=== PATIENT | male | born 1960 | race Caucasian/White ===

== ENCOUNTER 2016-12-08 18:05 | Emergency (ER) | payer OTHER ==
[2016-12-08] MEDS ORDERED: PREDNISONE 20 MG TAB PO ONE (18:31)
[2016-12-08] MEDS ORDERED: DIPHENHYDRAMINE HCL 25 MG CAPSULE PO ONE (18:32)
--- NOTE | 2016-12-08 18:38 | Emergency Department Record ---
History of Present Illness - General Chief complaint: Allergic Reaction Stated complaint: REACTION TO MED, HIVES Time Seen by Provider: 12/08/16 18:31 Source: Patient Mode of Arrival: Ambulatory Limitations: No limitations - History of Present Illness Initial Comments: 56 yo male presents with hives for one day. The hives are diffuse at this point. No shortness of breath. NO facial, tongue, or lip swelling. He has been on Amoxicillin for one week. He has had hives before on Amoxicillin. NO shortness of breath. MD Complaint: Hives Onset/Timin -: Days(s) Exposure: Medication Severity: Mild Treatment Prior to Arrival: Benadryl - Related Data Home Medications Medication Instructions Recorded Confirmed Last Taken Aspirin [Aspirin EC] 81 mg PO DAILY 11/20/15 11/20/15 1 Day Ago Loratadine [Claritin] 10 mg PO DAILY 11/20/15 11/20/15 1 Day Ago Montelukast Sodium [Singulair] 10 mg PO DAILY 11/20/15 11/20/15 1 Day Ago Omeprazole [Prilosec] 40 mg PO DAILY 11/20/15 11/20/15 1 Day Ago Amlodipine Bes/Olmesartan Med 1 each PO DAILY 12/08/16 12/08/16 12/08/16 [Art 10-20 mg Tablet] Previous Rx's Medication Instructions Recorded Prednisone [Prednisone 20Mg] 20 mg PO BID #10 tab 12/08/16 Allergies Allergy/AdvReac Type Severity Reaction Status Date / Time amoxicillin AdvReac RASH Verified 12/08/16 18:27 Travel Screening - Travel/Exposure Within Last 30 Days Have you traveled within the last 30 days?: No - Travel/Exposure Within Last Year Have you traveled outside the [place] in the last year?: No - Additonal Travel Details Have you been exposed to anyone with a communicable illness?: No - Travel Symptoms Symptom Screening: None Review of Systems Constitutional: Denies: Chills, Fever, Malaise, Night sweats, Weakness Eyes: Denies: Eye discharge, Eye pain, Photophobia, Vision change ENT: Denies: Congestion, Throat pain Respiratory: Denies: Cough, Dyspnea, Hemoptysis, Stridor, Wheezes Cardiovascular: Denies: Chest pain, Palpitations, Syncope Endocrine: Denies: Fatigue Gastrointestinal: Denies: Abdominal pain, Diarrhea, Nausea, Vomiting Genitourinary: Denies: Dysuria, Frequency, Hematuria Musculoskeletal: Denies: Arthralgia, Back pain, Myalgia, Neck pain Skin: Reports: Change in color, Pruritus Neurological: Denies: Headache Psychiatric: Denies: Anxiety Hematological/Lymphatic: Denies: Anemia, Blood Clots, Easy bleeding, Easy bruising Past Medical History - SOCIAL HISTORY Smoking Status: Never smoker Alcohol Use: Occassional Drug Use: None - RESPIRATORY Hx Respiratory Disorders: Yes Comment:: seasonal allergies - CARDIOVASCULAR Hx Cardio Disorders: Yes Hx Hypertension: Yes - NEURO Hx Neuro Disorders: No - GI Hx GI Disorders: No - Hx Genitourinary Disorders: No - ENDOCRINE Hx Endocrine Disorders: No Hx Diabetes: No Hx Thyroid Disease: No - MUSCULOSKELETAL Hx Musculoskeletal Disorders: No - PSYCH Hx Psych Problems: No - HEMATOLOGY/ONCOLOGY Hx Hematology/Oncology Disorders: No Family Medical History Any Significant Family History?: Yes Hx Cancer: Father, Brother/Sister Hx Stroke: Mother Physical Exam - General General Appearance: Alert, Oriented x3, Cooperative, No acute distress Limitations: No limitations - Head Head exam: Atraumatic, Normal inspection - Eye Eye exam: Normal appearance, PERRL - ENT ENT exam: Mucous membranes moist, Normal orophraynx, TM's normal bilaterally, Other (Few scattered hives, no swelling of the tongue or oral structures). negative: Mucous membranes dry Ear exam: Normal external inspection. negative: External canal tenderness Nasal Exam: Normal inspection. negative: Discharge, Sinus tenderness Mouth exam: Normal external inspection, Tongue normal Teeth exam: Normal inspection. negative: Dental caries Throat exam: Normal inspection. negative: Tonsillar erythema, Tonsillomegaly, Tonsillar exudate - Neck Neck exam: Normal inspection, Full ROM. negative: Lymphadenopathy, Tenderness, Thyromegaly - Respiratory Respiratory exam: Normal lung sounds bilaterally. negative: Accessory muscle use, Prolonged expiratory, Respiratory distress, Rhonchi, Stridor, Wheezes - Cardiovascular Cardiovascular Exam: Regular rate, Normal rhythm, Normal heart sounds - GI/Abdominal GI/Abdominal exam: negative: Soft, Distended, Rebound, Rigid, Tenderness - Rectal Rectal exam: Deferred - exam: Deferred - Extremities Extremities exam: Normal inspection, Full ROM, Normal capillary refill. negative: Tenderness - Back Back exam: Denies: Normal inspection (Hives) - Neurological Neurological exam: Alert, Normal gait, Oriented X3, Reflexes normal - Psychiatric Psychiatric exam: Normal affect, Normal mood - Skin Skin exam: Intact, Rash, Urticaria Course Vital Signs 12/08/16 18:09 Temperature 98.1 F Pulse Rate [ 99 H Pulse Ox Probe] Respiratory 16 Rate Blood Pressure 122/84 [Left Arm] Pulse Ox 96 - Reevaluation(s) Reevaluation #1: No No airway involvement Prednisone and Benadryl given 12/08/16 18:35 Disposition Disposition: Discharge Clinical Impression: Hives Disposition: Home, Self-Care Instructions: Urticaria (ED) Additional Instructions: Return if you have swelling, worse hives, short of breath or any concerns. Prescriptions: Prednisone [Prednisone 20Mg] 20 mg PO BID #10 tab Forms: Patient Portal Access Time of Disposition: 18:38
== END 2016-12-08 19:15 | disposition home or self-care (01) ==
LOC: ER 18:05
DX: L50.9 Urticaria, unspecified (principal)
CPT/HCPCS: 99282; J7512

== ENCOUNTER 2016-12-12 22:27 | Observation (INO) | payer OTHER ==
[2016-12-12] MEDS ORDERED: KETOROLAC 30 MG/ML VIAL IM ONE (22:53)
--- NOTE | 2016-12-12 23:04 | Emergency Department Record ---
History of Present Illness - General Chief complaint: Allergic Reaction Stated complaint: ALLERGIC REACTION/HANDS SWELLING Time Seen by Provider: 12/12/16 22:47 Source: Patient Mode of Arrival: Ambulatory Limitations: No limitations, Other - History of Present Illness Initial Comments: The patient is here due to a one day hx of hand and arm swelling and pain. He was seen in the ER 4 days ago for a presumed allergic rxn and was placed on Claritin and Prednisone. Now today he developed pain and swelling to his hands R > L with pain to his shoulders. The onset was initially in the R hand and then it travelled to his L. Yesterday he had some neck pain but that has resolved. The patient denies any fever, chills, MOODY, cough, CP, or SOB. He has no hx of similar issues. Onset/Timin -: Hour(s) Exposure: Unknown Symptoms: Itching, Other Severity: Mild Treatment Prior to Arrival: Laura Previous Allergy History: Other - Related Data Home Medications Medication Instructions Recorded Confirmed Last Taken Aspirin [Aspirin EC] 81 mg PO DAILY 11/20/15 12/12/16 12/12/16 Loratadine [Claritin] 10 mg PO DAILY 11/20/15 12/12/16 12/08/16 Montelukast Sodium [Singulair] 10 mg PO DAILY 11/20/15 12/12/16 12/08/16 Omeprazole [Prilosec] 40 mg PO DAILY 11/20/15 12/12/16 12/12/16 Amlodipine Bes/Olmesartan Med 1 each PO DAILY 12/08/16 12/12/16 12/12/16 [Art 10-20 mg Tablet] Previous Rx's Medication Instructions Recorded Prednisone [Prednisone 20Mg] 20 mg PO BID #10 tab 12/08/16 Allergies Allergy/AdvReac Type Severity Reaction Status Date / Time amoxicillin AdvReac RASH Verified 12/08/16 18:27 Travel Screening - Travel/Exposure Within Last 30 Days Have you traveled within the last 30 days?: No - Travel/Exposure Within Last Year Have you traveled outside the [place] in the last year?: No - Additonal Travel Details Have you been exposed to anyone with a communicable illness?: No - Travel Symptoms Symptom Screening: None Review of Systems Constitutional: Denies: Chills, Fever, Malaise Eyes: Denies: Eye discharge ENT: Denies: Congestion Respiratory: Denies: Cough, Dyspnea Cardiovascular: Denies: Arrhythmia, Chest pain Past Medical History - SOCIAL HISTORY Smoking Status: Never smoker Alcohol Use: Occassional Drug Use: None - RESPIRATORY Hx Respiratory Disorders: Yes Comment:: seasonal allergies - CARDIOVASCULAR Hx Cardio Disorders: Yes Hx Hypertension: Yes - NEURO Hx Neuro Disorders: No - GI Hx GI Disorders: No - Hx Genitourinary Disorders: No - ENDOCRINE Hx Endocrine Disorders: No Hx Diabetes: No Hx Thyroid Disease: No - MUSCULOSKELETAL Hx Musculoskeletal Disorders: No - PSYCH Hx Psych Problems: No - HEMATOLOGY/ONCOLOGY Hx Hematology/Oncology Disorders: No Family Medical History Any Significant Family History?: Yes Hx Cancer: Father, Brother/Sister Hx Stroke: Mother Physical Exam - General General Appearance: Alert, Oriented x3, Cooperative, No acute distress - Head Head exam: Atraumatic, Normocephalic, Normal inspection - Eye Eye exam: Normal appearance, PERRL - Neck Neck exam: Normal inspection, Full ROM. negative: Lymphadenopathy, Meningismus , Tenderness - Respiratory Respiratory exam: Normal lung sounds bilaterally. negative: Respiratory distress - Cardiovascular Cardiovascular Exam: Regular rate, Normal rhythm, Normal heart sounds - GI/Abdominal GI/Abdominal exam: Soft, Normal bowel sounds. negative: Tenderness - Extremities Extremities exam: Joint swelling (There is diffuse hand and wrist edema R mild and L trace.), Tenderness (There is diffuse hand and wrist tenderness R > L.), Other (The arm and hand compartments are soft but tender to the distal anterior forearm area L > R. Radial pulses are strong and equal bilaterally.). negative : Normal inspection (There is mild R hand edema but no erythema, bruising or abrasions.), Full ROM (Decreased hand and wrist flexion and extension R > L due to pain.), Pedal edema - Neurological Neurological exam: Alert, Normal gait, Oriented X3. negative: Abnormal gait, Motor sensory deficit Course Vital Signs 12/12/16 22:35 Temperature 98.1 F Pulse Rate [ 108 H Pulse Ox Probe] Respiratory 20 Rate Blood Pressure 144/90 [Left Arm] Pulse Ox 95 - Reevaluation(s) Reevaluation #1: The patient is resting comfortably but is still having the hand pain and tingling mainly to the L hand fingers. He still demonstrates edema to his hands R > L. I explained to him that his lab tests were mainly all normal and that I think the etiology of the edema could be his BP medicine. 12/13/16 00:26 12/13/16 02:13 Reevaluation #2: The patient is feeling a little better but is still having significant L hand pain. I explained to him that his lab evaluation, EKG and CXR are WNL. Due to the pain being so severe the patient is reluctant to go home. We have tried multiple pain medicines but he is still quite uncomfortable. We will try some ice to the wrist and decide on further treatment after. The patient does state his R hand is feeling better and is pain free at this time. 12/13/16 02:08 12/13/16 02:13 Reevaluation #3: The patient's L hand is feeling a little better at this time but now he has developed some diaphoresis and nausea. I do believe the most likely cause of the sweating and nausea is from the amount of pain medicines he has received. Due to the hands still being a significant problem I do plan on admitting the patient to the hospital on a short stay admission for pain control and IV steroids. 12/13/16 02:56 Medical Decision Making - Data Complexity MDM Data: Labs Ordered and/or Reviewed, X-Ray Ordered and/or Reviewed, EKG Ordered and/or Reviewed - Lab Data Result diagrams: 12/12/16 23:03 12/12/16 23:03 - EKG Data -: EKG Interpreted by Me EKG: No Acute Changes, Normal EKG - Radiology Data Radiology results: Report reviewed (CXR: Neg.) Disposition Disposition: Admit Clinical Impression: Allergic reaction Qualifiers: Encounter type: sequela Qualified Code(s): T78.40XS - Allergy, unspecified, sequela Decision to Admit: Admit from ER Decision to Admit Date: 12/13/16 Decision to Admit Time: 02:58 Accepting Physician: Dasha Time Discussed w/Accepting Physician: :58 Time of Disposition: 02:58
[2016-12-12 23:10] LABS: BASO % 0.2 % (0-6); EOS % 0.8 % (0-6); GRAN % 59.7 % (47-80); HEMATOCRIT 42.2 % (42.0-52.0); LYMPH % 29.3 % (16-45); MEAN CELL VOLUME 91.7 fl (81-97); MEAN CORPUSCULAR HEMOGLOBIN 30.4 pg (27-33); MEAN CORPUSCULAR HGB CONC 33.2 g/dl (32-36); MEAN PLATELET VOLUME 10.4 fl (7.4-10.4); PLATELET COUNT 246 K/uL (130-400); RED CELL DISTRIBUTION WIDTH 13.8 % (11.5-14.5); WHITE BLOOD COUNT W/O DIFF 12.9 K/uL (4.2-12.2)
[2016-12-12 23:24] LABS: ALB/GLOB RATIO 1.6 (1.1-1.8); ALBUMIN 4.2 gm/dL (3.5-5.0); ALKALINE PHOSPHATASE 92 U/L (38-126); ALT/SGPT 52 U/L (21-72); ANION GAP 15.1 (7-16); AST/SGOT 24 U/L (17-59); BILIRUBIN,TOTAL 0.48 mg/dL (0.2-1.3); BLOOD UREA NITROGEN 17 mg/dL (9-20); C-REACTIVE PROTEIN 2.1 mg/dL (0.0-0.9); CARBON DIOXIDE 22.9 mmol/L (22-30); EST GLOMERULAR FILTRATION RATE > 60 ml/min; GLUCOSE,RANDOM 102 mg/dL (70-110); TOTAL PROTEIN 6.8 gm/dL (6.3-8.2)
[2016-12-12 23:41] LABS: ERYTHROCYTE SEDIMENTATION RATE 7 mm/hr (0-20)
[2016-12-12] MEDS ORDERED: MORPHINE SULFATE 5 MG/ML PFS IM ONE (23:53)
[2016-12-12] MEDS ORDERED: ONDANSETRON 4 MG ODT TABLET SL ONE (23:53)
[2016-12-13] MEDS ORDERED: HYDROMORPHONE HCL 1 MG/ML CPJ IM ONE (00:42)
[2016-12-13] MEDS ORDERED: METHYLPREDNISOLONE PF 125MG/VIAL IM ONE (00:43)
[2016-12-13 01:25] LABS: CREATINE PHOSPHOKINASE 50 U/L (55-170)
[2016-12-13] MEDS ORDERED: LORAZEPAM 2 MG/ML VIAL IV ONE (01:25)
[2016-12-13] MEDS ORDERED: HYDROMORPHONE HCL 1 MG/ML CPJ IVP ONE (01:25)
[2016-12-13 01:38] LABS: CKMB 0.5 ug/L (0-6)
[2016-12-13 01:39] LABS: TROPONIN I < 0.012 ng/mL (0.00-0.034)
[2016-12-13] MEDS ORDERED: ONDANSETRON HCL IV 4 MG/2 ML VIAL IVP ONE (02:55)
[2016-12-13] MEDS ORDERED: 0.9 % SODIUM CHLORIDE 1,000 ML BAG IV ONE (02:55)
[2016-12-13] MEDS ORDERED: HYDROMORPHONE HCL 1 MG/ML CPJ IVP PRN (03:36)
[2016-12-13] MEDS ORDERED: METHYLPREDNISOLONE PF 125MG/VIAL IVP SCH (03:36)
[2016-12-13] MEDS ORDERED: 0.9 % SODIUM CHLORIDE 1000ML 1,000 ML IV PRN (03:36)
[2016-12-13] MEDS ORDERED: ACETAMINOPHEN 500 MG TABLET PO PRN (03:36)
[2016-12-13] MEDS ORDERED: ONDANSETRON HCL IV 4 MG/2 ML VIAL IVP PRN (03:36)
--- NOTE | 2016-12-13 07:41 | RADIOLOGY REPORT ---
EXAM: CHEST, TWO VIEWS HISTORY: ALLERGIC REACTION. PAIN AND SWELLING IN HANDS. LEFT SHOULDER STIFFNESS. TECHNIQUE: Upright PA and lateral views of the chest were obtained. Comparison: None. FINDINGS: The heart is not enlarged and the pulmonary vasculature is nondilated. The lung volumes are low. Minor linear scarring versus atelectasis is present in the lateral left lung base. The lungs and pleural spaces are otherwise clear. There are mild degenerative changes scattered within the visualized spine and shoulder girdles. IMPRESSION: MINOR LINEAR SCARRING VERSUS ATELECTASIS IN THE LATERAL LEFT LUNG BASE. JOB NUMBER: [id number] [facility]
--- NOTE | 2016-12-13 09:20 | History & Physical ---
History of Present Illness - Date of Service Date of Service for History & Physical: 12/13/16 - History of Present Illness Admitting Diagnosis: 1. Severe allergic reaction with angioedema. History of Present Illness: 56yo male with CC of bilateral hand pain and swelling. He has a history of HTN, seasonal allergies and urticaria reaction to amoxicillin. Patient presented to the ED yesterday evening with bilateral hand pain. Patient states that at about 2pm yesterday he was typing at work when all of a sudden he had acute onset of sharp bilateral hand pain primarily in the palm and undersides of his fingers. He noted swelling of both hands R>L and numbness and tingling of fingers in the left. 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 After the pain did not subside he decided to come to ED. While in the ED, patient was noted to have moderate swelling of bilateral hands. There were no rashes, redness, cuts, or other open lesions. Patient stated the only thing that had changed in the past week was that he had been put on amoxicillin 2 weeks prior and developed hives. He had then been put on predisone and claritin the past week for the hives which resolved. He had a CXR which was negative. His WBC count was minimally elevated at 12.9 but patient had been on prednisone taper. CRP was 2.1 but otherwise labs were unremarkable. Patient's pain was not improved with IV diluadid. The swelling in his left hand did resolve following soludmedrol 125mg and Icing but the right hand remained mildly swollen. He was admitted for intractable bilateral hand pain. 12/13/16- Patient continues to report pain in the left hand. Pain in the right hand has resolved. He is having tingling sensation in all the fingers of his left hand. The pain is sharp and worst with gripping. The left hand is no longer swollen, but the right continues to be mildly swollen. He is now reporting similar sharp pain in the left deltoid with movement. He denies any previous episodes similar to this. He denies any injury, previous diagnosis of carpal tunnel syndrome, neck pain or injury, rheumatologic conditions or family history of rheum conditions. PCP: Elisa Travel Screening - Travel/Exposure Within Last 30 Days Have you traveled within the last 30 days?: No - Travel/Exposure Within Last Year Have you traveled outside the [place] in the last year?: No - Additonal Travel Details Have you been exposed to anyone with a communicable illness?: No - Travel Symptoms Symptom Screening: None Review of Systems Constitutional: Denies: Chills, Fever, Malaise Eyes: Denies: Eye discharge ENT: Denies: Congestion Respiratory: Denies: Cough, Dyspnea Cardiovascular: Denies: Arrhythmia, Chest pain Gastrointestinal: Reports: Nausea. Denies: Abdominal pain Musculoskeletal: Reports: Joint swelling (right hand), Other (acute left hand and right pain ) Skin: Denies: Change in color, Rash Neurological: Reports: Numbness, Paresthesias, Tingling, Weakness. Denies: Abnormal gait, Confusion, Seizure Psychiatric: Denies: Anxiety, Depression Hematological/Lymphatic: Denies: Anemia, Blood Clots, Easy bleeding, Swollen glands Past Medical History - SOCIAL HISTORY Smoking Status: Never smoker Alcohol Use: Occassional Drug Use: None - RESPIRATORY Hx Respiratory Disorders: Yes Comment:: seasonal allergies - CARDIOVASCULAR Hx Cardio Disorders: Yes Hx Hypertension: Yes - NEURO Hx Neuro Disorders: No - GI Hx GI Disorders: No - Hx Genitourinary Disorders: No - ENDOCRINE Hx Endocrine Disorders: No Hx Diabetes: No Hx Thyroid Disease: No - MUSCULOSKELETAL Hx Musculoskeletal Disorders: No - PSYCH Hx Psych Problems: No - HEMATOLOGY/ONCOLOGY Hx Hematology/Oncology Disorders: No Family Medical History Any Significant Family History?: Yes Hx Cancer: Father, Brother/Sister Hx Stroke: Mother H&P Meds/Allergies - Allergies Allergies: Allergies Allergy/AdvReac Type Severity Reaction Status Date / Time amoxicillin AdvReac RASH Verified 12/08/16 18:27 - Home Medications Home Medications Medication Instructions Recorded Confirmed Last Taken Aspirin [Aspirin EC] 81 mg PO DAILY 11/20/15 12/12/16 12/12/16 Loratadine [Claritin] 10 mg PO DAILY 11/20/15 12/12/16 12/08/16 Montelukast Sodium [Singulair] 10 mg PO DAILY 11/20/15 12/12/16 12/08/16 Omeprazole [Prilosec] 40 mg PO DAILY 11/20/15 12/12/16 12/12/16 Amlodipine Bes/Olmesartan Med 1 each PO DAILY 12/08/16 12/12/16 12/12/16 [Art 10-20 mg Tablet] Previous Rx's Medication Instructions Recorded Prednisone [Prednisone 20Mg] 20 mg PO BID #10 tab 12/08/16 - Active Medications Active Medications: Current Medications Acetaminophen (Tylenol 500mg Tab) 500 mg PO Q6H PRN PRN Reason: PAIN/TEMP Aspirin (Ecotrin (Ec)) 81 mg PO DAILY [facility] Hydromorphone HCl (Dilaudid) 1 mg IVP Q4H PRN PRN Reason: Analgesia Sodium Chloride () 1,000 mls @ 15 mls/hr IV .Q24H PRN PRN Reason: LARGE VOLUME IV Loratadine (Claritin) 10 mg PO DAILY [facility] Methylprednisolone Sodium Succinate (Solu-Medrol) 60 mg IVP DAILY [facility] Montelukast Sodium (Singulair) 10 mg PO DAILY [facility] Ondansetron HCl (Zofran) 4 mg IVP Q4H PRN PRN Reason: NAUSEA Pantoprazole Sodium (Protonix) 80 mg PO DAILYAC [facility] Physical Exam - Vital Signs Vital Signs: Vital Signs - Last 24 Hrs Temp Pulse Resp BP Pulse Ox 12/13/16 07:57 97.6 F 85 16 115/82 95 12/13/16 03:25 98.1 F 77 16 124/87 - General General Appearance: Alert, Oriented x3, Cooperative, No acute distress Limitations: No limitations - Head Head exam: Atraumatic, Normocephalic, Normal inspection - Eye Eye exam: Normal appearance, PERRL - Neck Neck exam: Normal inspection, Full ROM. negative: Lymphadenopathy, Meningismus , Tenderness - Respiratory Respiratory exam: Normal lung sounds bilaterally. negative: Respiratory distress - Cardiovascular Cardiovascular Exam: Regular rate, Normal rhythm, Normal heart sounds Peripheral Pulses: 2+: Radial (R), Radial (L) - GI/Abdominal GI/Abdominal exam: Soft, Normal bowel sounds. negative: Tenderness - Extremities Extremities exam: Full ROM, Joint swelling (There is diffuse hand and wrist edema R mild and L trace.), Tenderness (TTP over left palmar surface ), Other ( The arm and hand compartments are soft but tender to the distal anterior forearm area L > R. Radial pulses are strong and equal bilaterally.). negative : Normal inspection (There is mild R hand edema but no erythema, bruising or abrasions.), Pedal edema - Neurological Neurological exam: Alert, Normal gait, Oriented X3. negative: Abnormal gait, Motor sensory deficit Results - Labs Result Diagrams: 12/12/16 23:03 12/12/16 23:03 - Imaging and Cardiology Chest x-ray Status: Report reviewed (minor atelectasis otherwise unremarkable) VTE H&P Assessment - Risk for VTE Risk for VTE: Yes Risk Level: Low Risk Assessment Date: 12/13/16 Risk Assessment Time: 12:31 VTE Orders Placed or Will Be Placed: Yes Plan - Detailed Diagnosis and Plan (1) Bilateral hand swelling Current Visit: Yes Status: Acute Base Code: M79.89 - OTHER SPECIFIED SOFT TISSUE DISORDERS Comment: 12/13/16- Resolved in the left hand and mild swelling of the right continues. No evidence of decreased perfusion with strong distal pulses and good capillary refill. No evidence of infection. VTE very unlikely considering b /l involvement. -continue icing the affected area -continue methylprednisone 60mg IV daily -hold amlodopine for now, although this is not likely to be inciting factor. -will get ESR with elevated CRP (2) Bilateral hand pain Current Visit: Yes Status: Acute Base Code: M79.641 - PAIN IN RIGHT HAND; M79.642 - PAIN IN LEFT HAND Comment: 12/13/16- Improved in the right hand but continues to be intractable in the left despite IV dilaudid. Pain improves with rest. No evidence of infection. Inflammatory vs neurologic vs? 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 No cervical neck pain or injury. Negative tinel's sign and no history of CPT. -continue methylprednisone (4) DVT prophylaxis Current Visit: Yes Status: Acute Base Code: [id number] - Comment: 12/13/16- Patient is low risk for VTE with age -encourage frequent ambulation (5) Full code status Current Visit: Yes Status: Acute Base Code: Z78.9 - OTHER SPECIFIED HEALTH STATUS Comment: 12/13/16- Patient is full code
[2016-12-13] MEDS ORDERED: FLU VAC QS 2016-17 (INPT, 3YR+) 60MCG/0.5ML IM ONE (10:00)
[2016-12-13] MEDS: ASPIRIN 81 MG TABEC PO SCH (10:25)
[2016-12-13] MEDS: MONTELUKAST SODIUM 10MG TABLET PO SCH (10:26)
[2016-12-13] MEDS: METHYLPREDNISOLONE PF 125MG/VIAL IVP SCH (10:26)
[2016-12-13] MEDS: PANTOPRAZOLE SODIUM 40 MG TABLET PO SCH (10:26)
[2016-12-13] MEDS: LORATADINE 10 MG TABLET PO SCH (10:26)
[2016-12-13] MEDS ORDERED: TRAMADOL HCL 50 MG TABLET PO PRN (10:33)
--- NOTE | 2016-12-13 12:28 | RADIOLOGY REPORT ---
EXAM: LEFT HAND, THREE VIEWS HISTORY: ACUTE PAIN AND SWELLING IN METACARPALS FOR ONE DAY. TECHNIQUE: Three views of the left hand were obtained. Comparison: Same day three views of the right hand. Encounter: Initial. FINDINGS: There is normal bone mineralization. No acute fracture, dislocation , or destructive bone lesion is seen. The articular relations are grossly maintained. No periarticular soft tissue abnormality is identified. No focal soft tissue swelling. IMPRESSION: NO EVIDENCE OF ACUTE BONE OR JOINT ABNORMALITY. JOB NUMBER: [id number] [facility]
--- NOTE | 2016-12-13 12:30 | RADIOLOGY REPORT ---
EXAM: RIGHT HAND, THREE VIEWS HISTORY: ACUTE PAIN AND SWELLING FOR ONE DAY. TECHNIQUE: Three views of the right hand were obtained. Comparison: Same day three views of the left hand. FINDINGS: There is normal bone mineralization. No acute fracture, dislocation , or destructive bone lesion is seen. The articular relations are maintained. No periarticular erosion. There is dorsal soft tissue swelling at the metacarpal level. A small caliber angiocatheter is noted within the lateral aspect of the wrist. IMPRESSION: 1. NO ACUTE BONE OR JOINT ABNORMALITY IDENTIFIED. 2. DORSAL SOFT TISSUE SWELLING AT THE METACARPAL LEVEL. JOB NUMBER: [id number] [facility]
[2016-12-13] MEDS ORDERED: IBUPROFEN 400 MG TABLET PO PRN (12:43)
[2016-12-13] MEDS: HYDROCODONE/APAP 5/325MG TABLET PO PRN ×2 (12:46→18:28)
[2016-12-14] MEDS: PANTOPRAZOLE SODIUM 40 MG TABLET PO SCH (06:20)
[2016-12-14 08:31] LABS: EOS % 0.2 % (0-6); GRAN % 75.8 % (47-80); HEMOGLOBIN 13.9 gm/dl (14.0-18.0); LYMPH % 16.8 % (16-45); MEAN CELL VOLUME 92.7 fl (81-97); MEAN CORPUSCULAR HGB CONC 33.1 g/dl (32-36); MEAN PLATELET VOLUME 10.3 fl (7.4-10.4); MONO % 7.2 % (0-9); PLATELET COUNT 247 K/uL (130-400); RED BLOOD COUNT 4.53 M/uL (4.40-5.70); RED CELL DISTRIBUTION WIDTH 13.7 % (11.5-14.5)
[2016-12-14 08:35] LABS: MEAN CORPUSCULAR HEMOGLOBIN 30.6 pg (27-33)
[2016-12-14 08:48] LABS: ALB/GLOB RATIO 1.5 (1.1-1.8); ALBUMIN 3.9 gm/dL (3.5-5.0); ALKALINE PHOSPHATASE 88 U/L (38-126); ALT/SGPT 48 U/L (21-72); ANION GAP 13.9 (7-16); AST/SGOT 17 U/L (17-59); BILIRUBIN,TOTAL 0.56 mg/dL (0.2-1.3); BLOOD UREA NITROGEN 19 mg/dL (9-20); C-REACTIVE PROTEIN 6.9 mg/dL (0.0-0.9); CARBON DIOXIDE 24.1 mmol/L (22-30); EST GLOMERULAR FILTRATION RATE > 60 ml/min; GLUCOSE,RANDOM 126 mg/dL (70-110); TOTAL PROTEIN 6.5 gm/dL (6.3-8.2)
[2016-12-14] MEDS: ASPIRIN 81 MG TABEC PO SCH (10:01)
[2016-12-14] MEDS: MONTELUKAST SODIUM 10MG TABLET PO SCH (10:01)
[2016-12-14] MEDS: LORATADINE 10 MG TABLET PO SCH (10:01)
[2016-12-14] MEDS: METHYLPREDNISOLONE PF 125MG/VIAL IVP SCH (10:01)
--- NOTE | 2016-12-14 10:58 | Discharge Summary ---
Providers Discharge Summary Date: 12/14/16 Date of admission: 12/13/16 03:16 Expected Date of Discharge: 12/14/16 Attending physician: DIO LOVELL Primary care physician: GREGORIO HEWITT D.O. Physical Exam - Vital Signs Vital Signs: Vital Signs - Last 24 Hrs Temp Pulse Resp BP BP Pulse Ox 12/14/16 09:00 16 12/14/16 05:49 97.5 F L 70 20 106/64 95 12/13/16 22:42 98.2 F 88 20 118/67 96 12/13/16 21:00 84 16 12/13/16 15:00 98.2 F 93 H 16 128/68 96 - General General Appearance: Alert, Oriented x3, Cooperative, No acute distress Limitations: No limitations - Head Head exam: Atraumatic, Normocephalic, Normal inspection - Eye Eye exam: Normal appearance, PERRL - Neck Neck exam: Normal inspection, Full ROM. negative: Lymphadenopathy, Meningismus , Tenderness - Respiratory Respiratory exam: Normal lung sounds bilaterally. negative: Respiratory distress - Cardiovascular Cardiovascular Exam: Regular rate, Normal rhythm, Normal heart sounds Peripheral Pulses: 2+: Radial (R), Radial (L) - GI/Abdominal GI/Abdominal exam: Soft, Normal bowel sounds. negative: Tenderness - Extremities Extremities exam: Full ROM, Other (The arm and hand compartments are soft. Radial pulses are strong and equal bilaterally.). negative: Normal inspection ( There is minimal R hand edema improved from yesterdaybut no erythema, bruising or abrasions.), Joint swelling, Pedal edema, Tenderness - Neurological Neurological exam: Alert, Normal gait, Oriented X3. negative: Abnormal gait, Motor sensory deficit Hospitalization - Hospitalization Admission Diagnosis: 1. Severe allergic reaction with angioedema. - Problem List/Discharge Diagnosis (1) Bilateral hand swelling Current Visit: Yes Status: Acute Base Code: M79.89 - OTHER SPECIFIED SOFT TISSUE DISORDERS Comment: 12/14/16- Resolved in the left hand and improving in the right hand. No evidence of decreased perfusion with strong distal pulses and good capillary refill. No evidence of infection. VTE very unlikely considering b/l involvement. XR of b/l hands were negative for any bony or joint abnormalities. It did show some soft tissue swelling of the dorsal aspect of the right hand. -continue supportive care with rest, icing and tyelnol as needed for mild- moderate pain. Will do a script for [place] 5/325mg PO q6H prn severe pain #8 -Will do prednisone taper as he has been on steroids >1 week now. Will start at 40mg and decrease by 10mg q2 days. -He has follow up with Dr. Hewitt next Saturday the at 9:30am (2) Bilateral hand pain Current Visit: Yes Status: Acute Base Code: M79.641 - PAIN IN RIGHT HAND; M79.642 - PAIN IN LEFT HAND Comment: 12/14/16- Resolved. No pain in the right or left hand. He does report very minimal tingling in the left fingertips also improved from yesterday. Inflammatory vs neurologic vs ? -will have him continue use of tylenol for mild-moderate pain and use of hydrocodone only for severe pain. he is to avoid NSAIDs while on steroids. (3) Hand weakness Current Visit: Yes Status: Acute Base Code: M62.81 - MUSCLE WEAKNESS ( GENERALIZED) Comment: 12/14/16- Resolved. 5/5 remote sensing advisor strength in b/l hands. No cervical neck pain or injury. Negative tinel's sign and no history of CPT. -continue prednisone taper over the next 8 days. -follow up with PCP as scheduled -patient understands he is to return at any time if he has worsening or new symptoms (4) DVT prophylaxis Current Visit: Yes Status: Acute Base Code: [id number] - Comment: 12/14/16- Patient is low risk for VTE with age -encourage frequent ambulation (5) Full code status Current Visit: Yes Status: Acute Base Code: Z78.9 - OTHER SPECIFIED HEALTH STATUS Comment: 12/14/16- Patient is full code - Hospitalization Course Disposition: Home, Self-Care Hospital Course: 56yo male with CC of bilateral hand pain and swelling. He has a history of HTN, seasonal allergies and urticaria reaction to amoxicillin. Patient presented to the ED yesterday evening with bilateral hand pain. Patient states that at about 2pm yesterday he was typing at work when all of a sudden he had acute onset of sharp bilateral hand pain primarily in the palm and undersides of his fingers. He noted swelling of both hands R>L and numbness and tingling of fingers in the left. He also developed remote sensing advisor weakness. After the pain did not subside he decided to come to ED. While in the ED, patient was noted to have moderate swelling of bilateral hands. There were no rashes, redness, cuts, or other open lesions. Patient stated the only thing that had changed in the past week was that he had been put on amoxicillin 2 weeks prior and developed hives. He had then been put on predisone and claritin the past week for the hives which resolved. He had a CXR which was negative. His WBC count was minimally elevated at 12.9 but patient had been on prednisone taper. CRP was 2.1 but otherwise labs were unremarkable. Patient's pain was not improved with IV diluadid. The swelling in his left hand did resolve following soludmedrol 125mg and Icing but the right hand remained mildly swollen. He was admitted for intractable bilateral hand pain. 12/13/16- Patient continues to report pain in the left hand. Pain in the right hand has resolved. He is having tingling sensation in all the fingers of his left hand. The pain is sharp and worst with gripping. The left hand is no longer swollen, but the right continues to be mildly swollen. He is now reporting similar sharp pain in the left deltoid with movement. He denies any previous episodes similar to this. He denies any injury, previous diagnosis of carpal tunnel syndrome, neck pain or injury, rheumatologic conditions or family history of rheum conditions. 12/14/16- Patient reports resolution of pain in both hands. He says the swelling in his right hand continues to improve. The tingling in the left fingertips has improved as well but not completely resolved. He feels the weakness in both hands has resolved and is not having any difficulty gripping. He denies chest pain, weakness, headache, skin changes, or swelling elsewhere. He is feeling ready to go home. Procedures: Imaging and X-Rays 12/13/16 10:41 HAND, LEFT 3 VIEWS [RAD] Stat HAND, RIGHT 3 VIEWS [RAD] Stat Abnormal Labs: Abnormal Lab Results 12/14/16 12/14/16 Range/Units 08:24 08:24 Hgb 13.9 L (14.0-18.0) gm/dl Random Glucose 126 H (70-110) mg/dL C-Reactive Protein 6.9 H (0.0-0.9) mg/dL Condition at Discharge: (2) Stable Discharge Medications - Discharge Medications Prescriptions: Hydrocodone/Acetaminophen [[place] 5mg/325mg] 1 tab PO Q6H PRN #8 tab PRN Reason: Pain - Severe (8-10) Prednisone [Prednisone 10Mg] 10 mg PO ASDIR #20 tab Home Medications: Ambulatory Orders Aspirin [Aspirin EC] 81 mg PO DAILY 11/20/15 [Last Taken 12/12/16] Loratadine [Claritin] 10 mg PO DAILY 11/20/15 [Last Taken 12/08/16] Montelukast Sodium [Singulair] 10 mg PO DAILY 11/20/15 [Last Taken 12/08/16] Omeprazole [Prilosec] 40 mg PO DAILY 11/20/15 [Last Taken 12/12/16] Amlodipine Bes/Olmesartan Med [Art 10-20 mg Tablet] 1 each PO DAILY 12/08/16 [ Last Taken 12/12/16] Hydrocodone/Acetaminophen [[place] 5mg/325mg] 1 tab PO Q6H PRN #8 tab 12/14/16 [ Last Taken Unknown] Prednisone [Prednisone 10Mg] 10 mg PO ASDIR #20 tab 12/14/16 [Last Taken Unknown ] Discharge Plan - Discharge Instructions Activity at Discharge: Resume Usual Activities As Tolerated Diet at Discharge: Regular Diet Additional Instructions: Please follow up with Dr. Hewitt next Saturday at 9:30am Follow prednisone taper and avoid NSAIDs while taking prednisone Use tylenol for mild to moderate pain and use [place] sparingly for severe pain Please call with any questions or concerns Please return to ED at any time if symptoms worsen or change
== END 2016-12-14 12:00 | disposition home or self-care (01) ==
LOC: ER 22:27 → MEDSURG 12-13 03:16
PROVIDERS: ADMIT Family Medicine; ATTEND Family Medicine
DX: M79.89 Other specified soft tissue disorders (principal); M79.641 Pain in right hand; M62.81 Muscle weakness (generalized); Z78.9 Other specified health status
CPT/HCPCS: 99285 ×2; 96374; 96372; 96375; 82550; 85025 ×2; 85651; 86140 ×2; 82553; 84484; 80053 ×2; 71020; 73130 ×2; 93005; 93010; 90686; G0378 ×2; J1885; J2405; J3490 ×2; J2060; J1170; J2270; 99217; 99220; J2930; J7030

== ENCOUNTER 2019-10-01 10:22 | Day surgery (SDC) | payer BC ==
[2019-10-01] MEDS ORDERED: LIDOCAINE 2% MDV (20MG/ML) 20ML VIAL IV ONE (10:23)
[2019-10-01] MEDS ORDERED: PROPOFOL 10 MG/ML VIAL IV ONE (10:23)
--- NOTE | 2019-10-02 12:42 | Operative Note ---
OPERATION: COLONOSCOPY with cold forceps polypectomy x2. PREOPERATIVE DIAGNOSIS: Personal history of colon polyps. POSTOPERATIVE DIAGNOSES: 1. Ascending colon polyp. 2. Cecal polyp. 3. Sigmoid diverticulosis. PREPARATION QUALITY: Good. ESTIMATED BLOOD LOSS: Minimal. SPECIMENS: Ascending colon and cecal. COMPLICATIONS: None apparent. PROCEDURE: After informed consent was obtained from the patient, he was placed in the left lateral decubitus position in the endoscopy suite, sedated and monitored by the department of anesthesia. Digital rectal exam was unremarkable. A well-lubricated [id number] colonoscope was inserted into the rectum and advanced to the cecum. Preparation quality was good. The cecum and cecal bulb revealed a diminutive polyp removed with a cold forceps. The ascending colon also revealed a diminutive polyp removed with a cold forceps. The remainder of the cecum, ascending colon, transverse colon, and descending colon were unrevealing. The sigmoid colon demonstrated [id number] diverticular changes but no polyps, mass lesions, or inflammation was seen. The rectum was unremarkable in forward and J-turn views. The endoscope was straightened, the rectal ampulla deflated, and the endoscope was removed. RECOMMENDATIONS: I would suggest the patient follow a high-fiber diet and resume his medications. He will require repeat exam in 5 years for continued surveillance. As always, thank you for allowing me to participate in the healthcare of your patients. ROMINA
== END 2019-10-01 11:32 | disposition home or self-care (01) ==
LOC: HOP 10:22
PROVIDERS: ATTEND Internal Medicine Gastroenterology
DX: Z12.11 Encounter for screening for malignant neoplasm of colon (principal); Z86.010 Personal history of colon polyps; D12.2 Benign neoplasm of ascending colon; D12.0 Benign neoplasm of cecum; K57.30 Diverticulosis of large intestine without perforation or abscess without bleeding; I10 Essential (primary) hypertension; K21.9 Gastro-esophageal reflux disease without esophagitis